=== PATIENT | male | born 1940 | race Native Hawaiian/Other Pacific Islander ===

== ENCOUNTER 2016-11-16 05:41 | Inpatient (IN) | payer OTHER ==
[~2016-11-16] VITALS: Ht 154.9 cm; Wt 63.5 kg
[2016-11-16 06:07] LABS: BASOPHILS % (AUTO) 0.2 % (0.0-2.0); DIFF TOTAL % 100 %; EOSINOPHILS # (AUTO) 1.5 /CMM (0.0-0.7); EOSINOPHILS % (AUTO) 17.2 % (0.0-6.0); HEMATOCRIT 45 % (39-51); LYMPHOCYTES # (AUTO) 1.7 /CMM (0.8-4.8); LYMPHOCYTES % (AUTO) 19.3 % (20.0-44.0); MEAN CORPUSCULAR HEMOGLOBIN 32 PG (26.0-33.0); MEAN CORPUSCULAR HGB CONC 33 g/dl (31.0-36.0); MEAN CORPUSCULAR VOLUME 96 fL (80-96); MONOCYTES # (AUTO) 0.8 /CMM (0.1-1.30); MONOCYTES % (AUTO) 9.8 % (2.0-12.0); NEUTROPHILS # (AUTO) 4.6 /CMM (1.8-8.9); NEUTROPHILS % (AUTO) 53.5 % (43.0-81.0); PLATELET COUNT (AUTO) 252 /CMM (150-450); WHITE BLOOD COUNT (AUTO) 8.6 K/uL (4.3-11.0)
[2016-11-16 06:14] LABS: ANION GAP 11 (5-14); CARBON DIOXIDE 30 mmol/L (21-32); CHLORIDE 105 mmol/L (98-107); CREATININE 1.2 mg/dL (0.6-1.3); GLUCOSE 126 mg/dL (74-106); POTASSIUM 4.3 mmol/L (3.5-5.1); SODIUM SERUM 141 mmol/L (136-145); UREA NITROGEN, BLOOD 13 mg/dL (7-18)
[2016-11-16 06:25] LABS: TROPONIN I < 0.017 ng/mL (0.00-0.056)
[2016-11-16 06:33] LABS: INR 1.01 (0.87-1.13); PROTHROMBIN TIME 10.9 SECS (9.5-12.7)
[2016-11-16 07:20] VITALS: BP 130/85
[2016-11-16 08:00] VITALS: BP 130/85
[2016-11-16] MEDS ORDERED: HYDR-3028 PO (08:47)
[2016-11-16] MEDS ORDERED: LOSA50TA21 PO (08:47)
[2016-11-16] MEDS ORDERED: LEVE500T9 PO (08:47)
[2016-11-16] MEDS ORDERED: TAMS0.4C34 PO (08:47)
[2016-11-16] MEDS ORDERED: SIMV20TA6 PO (08:47)
[2016-11-16] MEDS ORDERED: MORPHINE SULFATE INJ 2 MG/ML DISP.SYRIN IV PRN (09:00)
[2016-11-16] MEDS ORDERED: NITROGLYCERIN 0.4 MG/TAB BOTTLE SL PRN (09:00)
[2016-11-16] MEDS ORDERED: ASPIRIN 81 MG TAB.CHEW PO SCH (09:00)
[2016-11-16] MEDS ORDERED: CARVEDILOL 6.25 MG TABLET PO SCH (09:00)
[2016-11-16] MEDS: LOSARTAN POTASSIUM 50 MG TABLET PO SCH ×2 (09:00→18:01)
[2016-11-16] MEDS ORDERED: SIMVASTATIN 20 MG TABLET PO SCH ×2 (09:00→22:00)
[2016-11-16] MEDS ORDERED: LEVETIRACETAM (250 MG) 250 MG TABLET PO SCH (09:05)
[2016-11-16 10:24] LABS: CHOLESTEROL 119 mg/dL (<200); HDL CHOLESTEROL 38 mg/dL (40-60); LDL 70 mg/dL (0-99); TRIGLYCERIDES 52 mg/dL (30-150)
[2016-11-16 12:00] VITALS: BP_SYST 130; BP_SYST 131; BP_DIAS 75; BP_DIAS 85
[2016-11-16] MEDS ORDERED: PANTOPRAZOLE 40 MG TABLET.DR PO SCH (12:30)
[2016-11-16] MEDS ORDERED: TRIAMCINOLONE ACETONIDE 0.1% CR 15 GM TUBE TP SCH (13:49)
[2016-11-16] MEDS ORDERED: hydrOXYzine PAMOATE 25 MG CAPSULE PO PRN ×2 (14:00→22:00)
[2016-11-16 16:00] VITALS: BP 129/76
[2016-11-16 18:01] VITALS: BP 129/76
[2016-11-16] MEDS ORDERED: TAMSULOSIN 0.4 MG CAP.SR.24H PO SCH (22:00)
== END 2016-11-16 19:28 | disposition home or self-care (01) | DRG 203 ==
LOC: ER 05:46 → TELE1 07:11
PROVIDERS: ADMIT Internal Medicine; ATTEND Internal Medicine
DX: M94.0 Chondrocostal junction syndrome [Tietze] (principal); E11.9 Type 2 diabetes mellitus without complications; G40.909 Epilepsy, unspecified, not intractable, without status epilepticus; I10 Essential (primary) hypertension; T78.40XA Allergy, unspecified, initial encounter; X58.XXXA Exposure to other specified factors, initial encounter; R21 Rash and other nonspecific skin eruption; N40.0 Benign prostatic hyperplasia without lower urinary tract symptoms; J98.11 Atelectasis; K21.9 Gastro-esophageal reflux disease without esophagitis; I20.0 Unstable angina
CPT/HCPCS: 36415; 71010-TC; 80048-TC; 80061-TC; 84484-TC; 85025-TC; 85730-TC; 87081-TC; 93307-TC; A4606; Z7610